=== PATIENT | male | born 1935 | race Hispanic/Latino ===

== ENCOUNTER 2024-10-06 22:03 | Inpatient (IN) | payer SELFPAY ==
[~2024-10-06] VITALS: Ht 167.6 cm; Wt 59.0 kg
[2024-10-06 22:55] LABS: BASOPHILS # (AUTO) 0.02 K/uL (0.00-0.20); BASOPHILS % (AUTO) 0.3 % (0.0-5.0); IMMATURE GRANULOCYTE ABSOLUTE 0.02 K/uL (0-1); LYMPHOCYTES % (AUTO) 26.3 % (21.0-51.0); MEAN CORPUSCULAR HEMOGLOBIN 34.4 pg (27.0-33.0); MEAN CORPUSCULAR HGB CONC 33.8 g/dL (32.0-36.0); MEAN CORPUSCULAR VOLUME 101.9 fL (79-99); MONOCYTES # (AUTO) 0.7 K/uL (0.1-1.0); MONOCYTES % (AUTO) 8.6 % (3.0-13.0); NEUTROPHILS # (AUTO) 4.6 K/uL (1.8-7.7); NEUTROPHILS % (AUTO) 60.5 % (40.0-77.0); PLATELET COUNT (AUTO) 326 K/uL (130-400); RED BLOOD CELL COUNT(AUTO) 3.14 MIL/uL (4.50-6.20); RED CELL DISTRIBUTION WIDTH 12.6 % (11.0-15.5); WHITE BLOOD COUNT (AUTO) 7.5 K/uL (4.8-10.8)
[2024-10-06 23:05] LABS: CREATININE 1.6 mg/dL (0.5-1.3); POTASSIUM 4.5 mmol/L (3.5-5.1)
[2024-10-06 23:08] LABS: INR 0.96 (0.85-1.15); PROTHROMBIN TIME 10.2 SEC (9.6-11.6)
[2024-10-06 23:09] LABS: PARTIAL THROMBOPLASTIN TIME 28.8 SEC (26.3-35.5)
--- NOTE | 2024-10-06 23:53 | HMCIMG ---
CT PELVIS W/O CONTRAST HISTORY: Left hip pain COMPARISON: None TECHNIQUE: Multiple sequential axial images of the pelvis were obtained from the iliac crests through symphysis pubis. Patient was not given contrast through intravenous route. Oral contrast was not given. Three-dimensional reconstruction images were obtained. FINDINGS: There are normal sized pelvic and inguinal lymph nodes. Fecal material seen throughout the colon. Diverticula are seen within the colon consistent with diverticulosis. No ascites is seen. Atherosclerotic changes are present. No acute displaced fracture or dislocation is seen. Pelvic sidewalls are symmetric bilaterally. Bladder is well distended without wall thickening. IMPRESSION: 1. No acute displaced fracture is seen. Scoliosis. Fecal material in the colon . No acute finding. CT was performed with one or more following dose reduction techniques: automated exposure control, adjustment of the mA and kv according to patient's size, or use of a iterative reconstruction technique.
--- NOTE | 2024-10-07 00:20 | NUR ---
ASSUMED PT CARE AT THIS TIME
--- NOTE | 2024-10-07 00:54 | ERN ---
General Chief Complaint: Hip Pain/Injury Stated Complaint: FALL Time Seen by MD: 22:15 Time Seen by Midlevel: 22:15 Source: patient History of Present Illness Initial Comments Patient is an 89-year-old male presenting to the emergency department for evaluation of left hip pain. Patient states he fell around September 13, 2024. He states he was in the shower and accidentally slipped and landed on his left hip. Denies any head injury or loss of consciousness. For the last couple of days the patient has been having an increase in pain and is no longer able to walk without assistance. Past Medical History Past Medical History: Hypertension Past Surgical History: None ROS Dictation CONSTITUTIONAL: Negative except for HPI HEAD/FACE: Negative except for HPI EENT: Negative except for HPI RESPIRATORY: Negative except for HPI GASTROINTESTINAL/ABDOMINAL: Negative except for HPI GENITOURINARY: Negative except for HPI MUSCULOSKELETAL: Negative except for HPI INTEGUMENTARY: Negative except for HPI NEUROLOGICAL/PSYCH: Negative except for HPI HEMATOLOGIC/LYMPHATIC: Negative except for HPI All Systems Negative, Except as noted above. 13 point review of systems assessed and all negative except for above. Physical Exam Physical Exam Dictation Vital Signs reviewed General Appearance: Alert, oriented x 3, no acute distress, frail appearing Head and Face: non-traumatic. Eyes: PERRL, pink conjunctivas, eyelid no trauma, anterior chamber with arcus senilis. Ears: Pinnas intact and no signs of trauma or erythema ear canals clear and no discharge TM no erythema Nose: No discharge, no bleeding. Oropharynx: Mouth normal, tongue pink, pharynx clear,no erythema, tonsils no exudates, no abscesses noted, mucous membrane moist Neck: Supple, non-tender, no thyromegaly, no masses, no JVD, no bruits Breast:Deferred Chest:No tenderness, no crepitus, no paradoxical movement, no retractions Lungs:Clear, well-ventilated, symmetric, no rales, no wheezing, no rhonchi, no stridor, good breath sounds bilaterally Heart: Regular rate, regular rhythm, no murmur, no gallops Vascular: no peripheral edema, Abdomen: Soft, positive bowel sounds, nondistended, no guarding, nontender, no rebound, no masses no hepatomegaly, no splenomegaly, no Sanches's sign, no hernias. Rectal: Deferred Genital: Deferred Neurological: Normal speech, motor function intact, sensory function intact Musculoskeletal: Neck nontender, full range of motion, back nontender, full range of motion, Extremities: Left hip tenderness Skin: Color pink, dry, no turgor, no rash, no lacerations, no abrasions, no contusions. Lymphatic: Deferred Results Laboratory and Microbiology Lab and Micro Result Laboratory Tests Test 10/06/24 22:47 White Blood Count 7.5 K/uL (4.8-10.8) Red Blood Count 3.14 MIL/uL (4.50-6.20) L Hemoglobin 10.8 g/dL (14.0-18.0) L Hematocrit 32.0 % (42-54) L Mean Corpuscular Volume 101.9 fL (79-99) H Mean Corpuscular Hemoglobin 34.4 pg (27.0-33.0) H Mean Corpuscular Hemoglobin Concent 33.8 g/dL (32.0-36.0) Red Cell Distribution Width 12.6 % (11.0-15.5) Platelet Count 326 K/uL (130-400) Mean Platelet Volume 8.5 fL (7.5-10.5) Immature Granulocyte % (Auto) 0.3 % (0-1) Neutrophils (%) (Auto) 60.5 % (40.0-77.0) Lymphocytes (%) (Auto) 26.3 % (21.0-51.0) Monocytes (%) (Auto) 8.6 % (3.0-13.0) Eosinophils (%) (Auto) 4.0 % (0.0-8.0) Basophils (%) (Auto) 0.3 % (0.0-5.0) Neutrophils # (Auto) 4.6 K/uL (1.8-7.7) Lymphocytes # (Auto) 2.0 K/uL (1.0-4.8) Monocytes # (Auto) 0.7 K/uL (0.1-1.0) Eosinophils # (Auto) 0.30 K/uL (0.00-0.70) Basophils # (Auto) 0.02 K/uL (0.00-0.20) Absolute Immature Granulocyte (auto 0.02 K/uL (0-1) Nucleated Red Blood Cells 0.0 % (0.0-0.19) Prothrombin Time 10.2 SEC (9.6-11.6) Prothromb Time International Ratio 0.96 (0.85-1.15) Activated Partial Thromboplast Time 28.8 SEC (26.3-35.5) Sodium Level 132 mmol/L (136-145) L Potassium Level 4.5 mmol/L (3.5-5.1) Chloride Level 97 mmol/L (101-111) L Carbon Dioxide Level 30 mmol/L (21-32) Blood Urea Nitrogen 23 mg/dL (7-18) H Creatinine 1.6 mg/dL (0.5-1.3) H Glomerular Filtration Rate Calc 41 mL/min (>90) Random Glucose 86 mg/dL (70-105) Total Calcium 8.8 mg/dL (8.5-10.1) Labs Reviewed?: Yes MDM MDM: 89-year-old male presenting following a fall. On exam patient has left hip tenderness and is unable to walk without assistance. An x-ray of the left hip was obtained which shows an abnormality over the left femoral neck. A CT scan of the pelvis is read by the radiologist as no acute fracture however the 3D reconstruction shows an obvious avulsion fracture. The patient will be admitted for further observation and management. Case was discussed with the hospitalist on-call who agrees to admit the patient. Differential diagnosis: Hip fracture, contusion, dislocation Rationale: Tests considered and ordered secondary to shared decision making include: Previous outside records reviewed: Old ER visits. Risk of complication and/or morbidity or mortality of patient management: None Medications-Per medication reconciliation Need for hospitalization: Patient does meet criteria for hospitalization. Need for emergency major/minor surgery: No There are no social concerns with this patient. Prescription drug management Prescriptions will include symptomatic care Patient's prior external medical records from other ER visits were reviewed by me as indicated. Prior testing and results from previous visits were reviewed. Prior tests were taken into account with medical decision making and resource utilization, independent historian/historians were used to obtain complete medical history. I independently interpreted the test that were performed, results were reviewed by me and considered findings on radiology if ordered. Medical management and examination interpretation discussions were had by me with other qualified healthcare professionals as indicated for the patient's care. ED Course Orders Procedure Category Date Status Time Cbc With Differential LAB 10/06/24 Complete 22:15 Basic Metabolic Panel LAB 10/06/24 Complete 22:15 Pt And Ptt LAB 10/06/24 Complete 22:15 Hip Unilat 2-3vw Left RAD 10/06/24 Taken 22:15 Ct Pelvis W/O Contrast CT 10/06/24 Resulted 22:59 Vital Signs Date Time Temp Pulse Resp B/P (MAP) Pulse Ox O2 Delivery O2 Flow Rate FiO2 10/06/24 22:08 98.4 63 18 176/62 97 [facility] [address] [place] [id number] IMAGING REPORT Signed PATIENT: XIMENA ROLDAN MR#: [id number] : 1935 SEX: M AGE: 89 LOCATION: [facility] ORDER 99 STATUS: REG ER REPORT#: [id number] SERVICE 58 REASON: persistent left hip pain r/o fracture ORDERING PHYSICIAN: ALLAN DOAN PROCEDURE: PELVIS WO - CT PELVIS W/O CONTRAST CT PELVIS W/O CONTRAST HISTORY: Left hip pain COMPARISON: None TECHNIQUE: Multiple sequential axial images of the pelvis were obtained from the iliac crests through symphysis pubis. Patient was not given contrast through intravenous route. Oral contrast was not given. Three-dimensional reconstruction images were obtained. FINDINGS: There are normal sized pelvic and inguinal lymph nodes. Fecal material seen throughout the colon. Diverticula are seen within the colon consistent with diverticulosis. No ascites is seen. Atherosclerotic changes are present. No acute displaced fracture or dislocation is seen. Pelvic sidewalls are symmetric bilaterally. Bladder is well distended without wall thickening. IMPRESSION: 1. No acute displaced fracture is seen. Scoliosis. Fecal material in the colon . No acute finding. CT was performed with one or more following dose reduction techniques: automated exposure control, adjustment of the mA and kv according to patient's size, or use of a iterative reconstruction technique. DICTATED BY: HELEN READ MD DATE: 10/06/242345 ELECTRONICALLY SIGNED BY: HELEN READ MD DATE: 10/06/24 4366 DX & DISP Disposition: Inpatient Decision to Admit Date: Oct 07, 2024 Decision to Admit Time: 00:53 Departure Impression: Primary Impression: Closed left hip fracture Condition: Stable Referrals: SELF,REFERRAL (PCP) I have reviewed the case, and I agree with, Diagnosis and Plan I performed the substantive portion of the visit. I have reviewed and personally made and approve the management plan that is documented in the note by myself or the LOLA. I acknowledge for responsibility for the patient's management plan. ALLAN DOAN Oct 07, 2024 00:54
[2024-10-07] MEDS ORDERED: ondanSETRON 4MG INJ IV PRN (02:00)
[2024-10-07] MEDS ORDERED: hydrALAZine 20MG/ML VIAL IV PRN ×2 (02:00→13:30)
--- NOTE | 2024-10-07 02:01 | HP ---
[facility] HISTORY AND PHYSICAL Date of Service: Oct 07, 2024 Time of Service: 01:31 HISTORY OF PRESENT ILLNESS: This is an 89-year-old male, Chinese-speaking with past medical history of hypertension presented to the ED for complaints of left hip pain.Apparently patient fell on August at home while in the shower.On my interview with the primary nurse and patient stated that patient fell a week ago while in the shower and patient fell 2 x on that same day while in the shower.Patient states he got dizzy and slid off the floor and landed on his left hip.Patient denies passing out,hitting his head ,headache and seizure.Patient d id not seek medical attention however for the past 2 days patient started experiencing an increasing pain intensity on his left hip and started having difficulty walking without assistance so he decided to come to the Ed for evaluation.Patient denies taking blood thinner or any antiplatelet medication. Seen and examined patient in the ER awake,alert and coherent,following commands. Patient denies fever,chills,cough,chest pain,palpitation and shortness of breath. Latest vital signs temperature 98.4 heart rate 63 blood pressure 176/62 saturation 97% on room air. Labs: Hemoglobin 10.8, hematocrit 32 platelet count 326. Sodium 132, chloride 97, BUN 23, creatinine 1.6 GFR 41. Left hip x-ray result is still pending at this time. CT pelvis without contrast result revealed there is avulsion fracture displacement involving the greater trochanter of the left proximal femur. Adjacent soft tissue swelling is seen. The scoliosis. Fecal material in the colon. We will admit patient for further medical management. REVIEW OF SYSTEMS CONSTITUTIONAL: Denies fevers, chills, or night sweats. No unintentional weight loss reported. NEUROLOGICAL: Denies headache, amaurosis fugax, motor weakness, sensory def icit, vertigo/spinning sensation, gait abnormalities, or tremors. ENT: No hearing loss, otalgia, otorrhea, rhinitis, rhinorrhea, hoarseness, or sore throat. CARDIOVASCULAR: Denies any exertional angina, dyspnea on exertion, orthopnea, paroxysmal nocturnal dyspnea, palpitations, life-threatening arrhythmias, claudication. PULMONARY: Denies any shortness of breath, cough, phlegm/sputum, hemoptysis, pleuritic chest pain. SLEEP: Denies morning headaches, daytime somnolence or napping. Denies difficulty falling asleep, staying asleep, waking from sleep. Denies knowledge of snoring. GASTROINTESTINAL: Denies any type of dysphagia to either liquids or solids. Denies nausea, vomiting, pyrosis, early satiety, abdominal pain, diarrhea, constipation, or changes in stool consistency or caliber. Denies coffee-ground emesis, hematemesis, hematochezia, or melanotic stools. GENITOURINARY: Denies frequency, urgency, nocturia, hematuria or incontinence (Storage/Irritative symptoms.) Low urinary stream, straining to void, urinary intermittency or hesitancy, splitting of the voiding stream, terminal dribbling. ENDOCRINOLOGIC: Denies polyuria, polydipsia, polyphagia or heat/cold intolerances. HEMATOLOGIC: Denies thrombophilia/previous clots, or coagulopathy/bleeding disorders. ONCOLOGIC: Denies personal history of malignancy. DERMATOLOGIC: Denies rashes or pruritus. PSYCHIATRIC: Denies any suicidal or homicidal ideation. Denies hallucinations. PAST MEDICAL HISTORY: [ Hypertension ] PAST SURGICAL HISTORY: [ Cholecystectomy ] PAST SOCIAL HISTORY: [Patient lives with who and a. Patient denies alcohol tobacco and recreational drug use ] FAMILY HISTORY: [ Noncontributory] PHYSICAL EXAM GENERAL APPEARANCE: The patient is awake, alert, and oriented, in no acute cardiopulmonary distress. NEUROLOGICAL: Cranial nerves II-XII grossly intact. Motor is 5/5 in bilateral upper and lower extremities proximal to distal. No sensory deficits. HEENT: Face is symmetric. Pupils are equal and reactive. Extraocular movements are intact. NECK: Supple. No JVD. No thyromegaly. No submental, submandibular, pre- /postauricular, occipital or supraclavicular lymphadenopathy. CHEST: Normal chest expansion. No Telemetry. LUNGS: Absence of any rales, rhonchi or any wheezing. CARDIOVASCULAR: Regular. S1 and S2 normal. No appreciable rubs, murmurs or gallops. ABDOMEN: Soft, nontender, and nondistended. There is no rebound, voluntary guarding, or rigidity. : Deferred. No Antonio. EXTREMITIES: Non-edematous and not cyanotic. No clubbing. Good capillary refill. SKIN: Bruising to left outer lateral thigh Vital Sign (Last 24 Hours) 10/06/24 22:08 Temp 98.4 Pulse 63 Resp 18 B/P (MAP) 176/62 Pulse Ox 97 LABS: Laboratory: Test 10/06/24 22:47 Range/Units White Blood Count 7.5 4.8-10.8 K/uL Red Blood Count 3.14 L 4.50-6.20 MIL/uL Hemoglobin 10.8 L 14.0-18.0 g/dL Hematocrit 32.0 L 42-54 % Mean Corpuscular Volume 101.9 H 79-99 fL Mean Corpuscular Hemoglobin 34.4 H 27.0-33.0 pg Mean Corpuscular Hemoglobin Concent 33.8 32.0-36.0 g/dL Red Cell Distribution Width 12.6 11.0-15.5 % Platelet Count 326 130-400 K/uL Mean Platelet Volume 8.5 7.5-10.5 fL Immature Granulocyte % (Auto) 0.3 0-1 % Neutrophils (%) (Auto) 60.5 40.0-77.0 % Lymphocytes (%) (Auto) 26.3 21.0-51.0 % Monocytes (%) (Auto) 8.6 3.0-13.0 % Eosinophils (%) (Auto) 4.0 0.0-8.0 % Basophils (%) (Auto) 0.3 0.0-5.0 % Neutrophils # (Auto) 4.6 1.8-7.7 K/uL Lymphocytes # (Auto) 2.0 1.0-4.8 K/uL Monocytes # (Auto) 0.7 0.1-1.0 K/uL Eosinophils # (Auto) 0.30 0.00-0.70 K/uL Basophils # (Auto) 0.02 0.00-0.20 K/uL Absolute Immature Granulocyte (auto 0.02 0-1 K/uL Nucleated Red Blood Cells 0.0 0.0-0.19 % Prothrombin Time 10.2 9.6-11.6 SEC Prothromb Time International Ratio 0.96 0.85-1.15 Activated Partial Thromboplast Time 28.8 26.3-35.5 SEC Sodium Level 132 L 136-145 mmol/L Potassium Level 4.5 3.5-5.1 mmol/L Chloride Level 97 L 101-111 mmol/L Carbon Dioxide Level 30 21-32 mmol/L Blood Urea Nitrogen 23 H 7-18 mg/dL Creatinine 1.6 H 0.5-1.3 mg/dL Glomerular Filtration Rate Calc 41 >90 mL/min Random Glucose 86 70-105 mg/dL Total Calcium 8.8 8.5-10.1 mg/dL DIAGNOSTICS / RADIOLOGY: [ ] ASSESSMENT: Closed left hip fracture POA S/P Fall injury at home POA Acute kidney injury POA Uncontrolled hypertension POA Acute anemia POA Scoliosis per CT POA PLAN: We will admit patient in medical surgical We will start on heart healthy diet We will start NS @ 75 ml / hr x2 bags and re evaluate We will start on Famotidine 20 mg IV bid for GI prophylaxis We will replace electrolytes as needed per protocol We will add prn medication for fever,pain,nausea and pain We will reconcile home meds once medlist available We will request labs in am We will request fecal occult blood We will seek orthopedic surgeon consultation Further orders to follow depending on above results Case discussed with attending physician and came up with above treatment and plan of care. ADVANCED CARE PLANNING 1. Which of the following were discussed? Hospice Care - No Therapeutic options - Yes Advance Directives - No Other discussions - 2. Discussed with who? Patient and Calli Grewal 3. Voluntary nature of this service was explained to the patient? Yes 4. Amount of time spent - 20 5. Reviewed by Physician? (if this service was performed by NPP) Yes Patient seen and examined by me. Agree with note by CURRICULUM COUNSELOR SEE ADDITIONAL ORDERS PER CHART DISCUSSED WITH NURSING STAFF ANAI STONE Oct 07, 2024 02:01
[2024-10-07] MEDS: acetaMINOPHEN 325 MG TAB PO PRN ×2 (02:29→10:09)
[2024-10-07] MEDS: 0.9%NACL 1000ML 1,000 ML IV SCH (02:29)
[2024-10-07] MEDS ORDERED: LACTULOSE 20 GM/30 ML UDCUP PO PRN (02:30)
[2024-10-07 04:55] LABS: APPEARANCE,URINE CLEAR (CLEAR); BILIRUBIN,URINE NEGATIVE (NEGATIVE); COLOR,URINE COLORLESS (YELLOW); GLUCOSE, URINE (UA) NEGATIVE (NEGATIVE); KETONES,URINE NEGATIVE (NEGATIVE); LEUKOCYTE ESTERASE ,URINE NEGATIVE Leu/uL (NEGATIVE); NITRATE,URINE NEGATIVE (NEGATIVE); OCCULT BLOOD,URINE NEGATIVE (NEGATIVE); PROTEIN,URINE NEGATIVE (NEGATIVE); UROBILINOGEN,URINE 0.2 mg/dL (0.2-1.0)
[2024-10-07 04:57] LABS: ADD UA MICROSCOPIC NO
[2024-10-07 07:43] LABS: BASOPHILS # (AUTO) 0.03 K/uL (0.00-0.20); BASOPHILS % (AUTO) 0.5 % (0.0-5.0); EOSINOPHILS # (AUTO) 0.36 K/uL (0.00-0.70); EOSINOPHILS % (AUTO) 6.6 % (0.0-8.0); HEMATOCRIT 33.3 % (42-54); IMMATURE GRANULOCYTE ABSOLUTE 0.01 K/uL (0-1); LYMPHOCYTES # (AUTO) 1.4 K/uL (1.0-4.8); LYMPHOCYTES % (AUTO) 25.2 % (21.0-51.0); MEAN CORPUSCULAR HGB CONC 33.3 g/dL (32.0-36.0); MEAN CORPUSCULAR VOLUME 102.1 fL (79-99); MONOCYTES # (AUTO) 0.5 K/uL (0.1-1.0); MONOCYTES % (AUTO) 8.8 % (3.0-13.0); NEUTROPHILS # (AUTO) 3.2 K/uL (1.8-7.7); NEUTROPHILS % (AUTO) 58.7 % (40.0-77.0); PLATELET COUNT (AUTO) 263 K/uL (130-400); RED BLOOD CELL COUNT(AUTO) 3.26 MIL/uL (4.50-6.20); RED CELL DISTRIBUTION WIDTH 12.5 % (11.0-15.5); WHITE BLOOD COUNT (AUTO) 5.5 K/uL (4.8-10.8)
[2024-10-07 07:53] LABS: INR 0.98 (0.85-1.15); PROTHROMBIN TIME 10.4 SEC (9.6-11.6)
[2024-10-07 07:54] LABS: PARTIAL THROMBOPLASTIN TIME 30.3 SEC (26.3-35.5)
[2024-10-07 08:01] LABS: ALBUMIN 3.3 g/dL (3.5-5.0); BILIRUBIN,TOTAL 0.5 mg/dL (0.2-1.0); CREATININE 1.3 mg/dL (0.5-1.3); MAGNESIUM 2.2 mg/dL (1.80-2.40); POTASSIUM 4.3 mmol/L (3.5-5.1); TOTAL PROTEIN, SERUM 6.9 g/dL (6.0-8.3)
[2024-10-07 08:05] VITALS: BP 177/74; PULSE 69; RESP 16; TEMP 98.3
[2024-10-07 09:00] VITALS: O2SAT 97
--- NOTE | 2024-10-07 09:12 | HMCIMG ---
Exam Type: HIP UNILAT 2-3VW LEFT Clinical Information: fall Comparison: None Findings and impression: There is osteopenia. There is a fracture of the greater trochanter base. No extension into the intertrochanteric region is seen and there are no other abnormalities.
[2024-10-07] MEDS: FAMOTIDINE 20MG VIAL IV SCH (09:40)
[2024-10-07 11:29] VITALS: BP 152/74; PULSE 65; RESP 17; TEMP 98
[2024-10-07] MEDS: amLODIPine 5 MG TAB PO SCH (15:43)
[2024-10-07 16:00] VITALS: BP 159/66; PULSE 66; RESP 17; TEMP 97.8
--- NOTE | 2024-10-07 16:32 | NUR ---
DCP -- Home Patient hard of hearing and speaks Nepalese. Patient had Preet Grewal, Son, be the historian. Preet Grewal, Son states patient lives with Savannah Arreguin, Daughter [phone], Calli Choi, Spouse and two sons in a house with a walk in shower. [facility] patient is retired, remains independent and does not drive. States able to complete ADL's with little help and observation. [facility] patient has a cane; denies other medical devices. Denies home health services, home care provider or dialysis. PCP - None (sees medical doctor in [place]) Pharmacy - [facility]. Upon discharge, Savannah Arreguin, Daughter [phone] and family will assist with care, as needed. Referred to Financial Counseling, [facility] and provided Community Resources List. Notifcesar Madden. Addendum: 10/07/24 at 1640 by MARVIN MARTÍNEZ RN CM Amended: Links added.
--- NOTE | 2024-10-07 17:15 | CONS ---
CONSULTATION NOTE Date of Service: Oct 07, 2024 Reason for Consultation: Left greater trochanteric fracture Requesting Physician: Unknown HISTORY OF PRESENT ILLNESS: 89-year-old male who reports falling 3-4 weeks ago with the onset of left hip pain. Family reports that the over the last few days his pain has been significantly increasing with significant pain yesterday causing them to present to the emergency room. Patient's daughter reports that he has been ambulating with a cane some during the last three or four weeks. REVIEW OF SYSTEMS CONSTITUTIONAL: Denies fever, chills, or fatigue. HEAD/FACE: No signs of trauma. EENT: Denies eye pain, blurred vision, double vision, or light sensitivity. RESPIRATORY: Denies shortness of breath, cough, wheezing CARDIOVASCULAR: Denies chest pain, palpitation, syncope GASTROINTESTINAL/ABDOMINAL: Denies abdominal pain, constipation, diarrhea, nausea or vomiting GENITOURINARY: Denies dysuria or hematuria. MUSCULOSKELETAL: Reports joint pain, tenderness, and trauma. INTEGUMENTARY: Denies rash or itchiness NEUROLOGICAL/PSYCH: Denies anxiety, depression, heat or cold intolerance. PAST MEDICAL HISTORY: HTN PAST SURGICAL HISTORY: cholecystectomy PAST SOCIAL HISTORY: Denies smoking, occasional alcohol use, lives with multigenerational family members, walks with a cane FAMILY HISTORY: NC Coded Allergies: No Known Drug Allergies (Unverified Allergy, Unknown, 10/07/24) PHYSICAL EXAM EYES: Anicteric. HENT: moist Oral mucosa NECK: Supple LUNGS: Nonlabored breathing CARDIOVASCULAR: Regular rate 2+ left dorsalis pedis ABDOMEN: Nondistended CENTRAL NERVOUS SYSTEM: Awake, alert, oriented x 3. No focal deficits. SKIN: Ecchymosis that is old over the lateral aspect of the left thigh LYMPHATICS: No peripheral lymphadenopathy MUSCULOSKELETAL: Left lower extremity with tenderness in the greater trochanteric region. Patient is able to perform knee flexion and extension, ankle plantar flexion and dorsiflexion. Palpable pulses distally. Neurovascularly intact. Ecchymosis in the lateral thigh. Small lesion that appears more psoriatic in the lateral thigh as well. EXTREMITIES: No cyanosis or clubbing BACK: Deferred GENITOURINARY: Deferred Vital Sign (Last 24 Hours) 10/07/24 10/07/24 10/07/24 07:40 11:29 16:00 Temp 97.9 Pulse 66 Resp 17 B/P (MAP) 159/66 Pulse Ox 98 O2 Delivery Room Air O2 Flow Rate 0 FiO2 21 LABS: Laboratory: Test 10/07/24 07:28 10/07/24 04:40 Range/Units White Blood Count 5.5 # 4.8-10.8 K/uL Red Blood Count 3.26 L 4.50-6.20 MIL/uL Hemoglobin 11.1 L 14.0-18.0 g/dL Hematocrit 33.3 L 42-54 % Mean Corpuscular Volume 102.1 H 79-99 fL Mean Corpuscular Hemoglobin 34.0 H 27.0-33.0 pg Mean Corpuscular Hemoglobin Concent 33.3 32.0-36.0 g/dL Red Cell Distribution Width 12.5 11.0-15.5 % Platelet Count 263 130-400 K/uL Mean Platelet Volume 8.2 7.5-10.5 fL Immature Granulocyte % (Auto) 0.2 0-1 % Neutrophils (%) (Auto) 58.7 40.0-77.0 % Lymphocytes (%) (Auto) 25.2 21.0-51.0 % Monocytes (%) (Auto) 8.8 3.0-13.0 % Eosinophils (%) (Auto) 6.6 0.0-8.0 % Basophils (%) (Auto) 0.5 0.0-5.0 % Neutrophils # (Auto) 3.2 1.8-7.7 K/uL Lymphocytes # (Auto) 1.4 1.0-4.8 K/uL Monocytes # (Auto) 0.5 0.1-1.0 K/uL Eosinophils # (Auto) 0.36 0.00-0.70 K/uL Basophils # (Auto) 0.03 0.00-0.20 K/uL Absolute Immature Granulocyte (auto 0.01 0-1 K/uL Nucleated Red Blood Cells 0.0 0.0-0.19 % Prothrombin Time 10.4 9.6-11.6 SEC Prothromb Time International Ratio 0.98 0.85-1.15 Activated Partial Thromboplast Time 30.3 26.3-35.5 SEC Sodium Level 136 136-145 mmol/L Potassium Level 4.3 3.5-5.1 mmol/L Chloride Level 102 101-111 mmol/L Carbon Dioxide Level 29 21-32 mmol/L Blood Urea Nitrogen 18 7-18 mg/dL Creatinine 1.3 0.5-1.3 mg/dL Glomerular Filtration Rate Calc 53 >90 mL/min Random Glucose 88 70-105 mg/dL Total Calcium 8.6 8.5-10.1 mg/dL Magnesium Level 2.20 1.80-2.40 mg/dL Iron Level 56 L 65-175 mcg/dL Total Iron Binding Capacity 280 250-450 mcg/dL Percent Iron Saturation 20.0 L 30-44 % Total Bilirubin 0.5 0.2-1.0 mg/dL Aspartate Amino Transf (AST/SGOT) 24 10-37 U/L Alanine Aminotransferase (ALT/SGPT) 22 12-78 U/L Alkaline Phosphatase 122 50-136 U/L Total Protein 6.9 6.0-8.3 g/dL Albumin 3.3 L 3.5-5.0 g/dL Urine Color COLORLESS YELLOW Urine Appearance CLEAR CLEAR Urine pH 7.0 5.0-8.0 Urine Specific [place] 1.006 1.001-1.031 Urine Protein NEGATIVE NEGATIVE mg/dL Urine Glucose (UA) NEGATIVE NEGATIVE mg/dL Urine Ketones NEGATIVE NEGATIVE mg/dL Urine Occult Blood NEGATIVE NEGATIVE Urine Nitrate NEGATIVE NEGATIVE Urine Bilirubin NEGATIVE NEGATIVE mg/dL Urine Urobilinogen 0.2 0.2-1.0 mg/dL Urine Leukocyte Esterase NEGATIVE NEGATIVE Jaylon/uL DIAGNOSTICS / RADIOLOGY: AP pelvis and CT scan of pelvis both with displaced greater trochanteric fracture of the left hip. ASSESSMENT: 89-year-old male through a status post left greater trochanteric fracture. PLAN: Patient can be foot flat weight-bearing with a walker with physical therapy. I discussed with the patient and family that this will likely take three months to heal given his advanced age. We discussed that it will we painful while this is healing. We discussed that the fracture appears stable and so we will allow him to partial weightbear on this leg. Follow up in [facility] in three weeks. NIKOLE ROSSI MD Oct 07, 2024 17:15
[2024-10-07 19:00] VITALS: BP_SYST 114; BP_SYST 136; BP_DIAS 39; BP_DIAS 67; PULSE 66; RESP 18; TEMP 97.9
[2024-10-07 20:10] VITALS: O2SAT 95
[2024-10-08 00:19] VITALS: BP 126/67; PULSE 63; RESP 18; TEMP 98.2
[2024-10-08 04:21] VITALS: BP 143/69; PULSE 68; RESP 18; TEMP 98
[2024-10-08 04:54] VITALS: BP 143/69; PULSE 68; RESP 18; TEMP 98
[2024-10-08 05:59] LABS: HEMATOCRIT 30.2 % (42-54); MEAN CORPUSCULAR HEMOGLOBIN 34.8 pg (27.0-33.0); MEAN CORPUSCULAR HGB CONC 34.4 g/dL (32.0-36.0); RED BLOOD CELL COUNT(AUTO) 2.99 MIL/uL (4.50-6.20); RED CELL DISTRIBUTION WIDTH 12.3 % (11.0-15.5); WHITE BLOOD COUNT (AUTO) 5.7 K/uL (4.8-10.8)
[2024-10-08 06:09] LABS: ALBUMIN 3.1 g/dL (3.5-5.0); BILIRUBIN,TOTAL 0.5 mg/dL (0.2-1.0); CREATININE 1.3 mg/dL (0.5-1.3); MAGNESIUM 2.2 mg/dL (1.80-2.40); POTASSIUM 4.3 mmol/L (3.5-5.1); TOTAL PROTEIN, SERUM 6.5 g/dL (6.0-8.3)
[2024-10-08 08:00] VITALS: BP_SYST 149; BP_SYST 154; BP_DIAS 67; BP_DIAS 77; PULSE 70; PULSE 72; RESP 18; TEMP 98.3; TEMP 98.4; O2SAT 97
[2024-10-08 12:00] VITALS: BP 149/67; PULSE 70; RESP 18; TEMP 98.3
[2024-10-08] MEDS ORDERED: AMLO5TAB4 PO (12:11)
--- NOTE | 2024-10-08 13:03 | NUR ---
CM NOTE/WALKER CM spoke to CM director regarding pending discharge and DME needs. Approved [facility] walker to be loaned to patient. CM spoke to patient and spouse at bedside regarding loaned walker. Verbalized understanding. Spouse/patient aware to return borrowed walker to [facility] ER once they have obtained DME from friend/family. CM updated primary nurse. Addendum: 10/08/24 at 1305 by MERYL PANG CM Amended: Links added.
--- NOTE | 2024-10-08 14:58 | DS ---
Discharge Summary Hospital Course Summary: This is an 89-year-old male, Martiniquais-speaking with past medical history of hypertension presented to the ED for complaints of left hip pain. Apparently patient fell on August at home while in the shower. Seen and examined patient in the ER awake,alert and coherent,following commands. In the emergency room vital signs temperature 98.4 heart rate 63 blood pressure 176/62 saturation 97% on room air. In the emergency room Labs: Hemoglobin 10.8, hematocrit 32 platelet count 326. Sodium 132, chloride 97, BUN 23, creatinine 1.6 GFR 41. Left hip x-ray result is still pending at this time. CT pelvis without contrast result revealed there is avulsion fracture displace ment involving the greater trochanter of the left proximal femur. Adjacent soft tissue swelling is seen. The scoliosis. Fecal material in the colon. Orthopedic consultation requested, recommendations followed, weight-bearing with a walker with the physical activity recommended. To follow up as an outpatient in three weeks. [employer] Heating Installer(s): Orthopedic Assessment/Plan: Final diagnosis Closed left hip fracture POA S/P Fall injury at home POA Acute kidney injury POA Uncontrolled hypertension POA Acute anemia POA Scoliosis per CT POA Discharge Instructions: Patient to follow up with the orthopedic physician Dr. Andrews in three weeks as an outpatient and to return to the hospital if condition changes. Patient to take Tylenol and ibuprofen as needed for pain control. Patient and family agreed and understood the information provided. Home Medications: Active Scripts Amlodipine Besylate (Norvasc 5Mg Tab) 5 Mg Tablet, 5 MG PO DAILY for 30 Days, #30 TAB 1 Refill Prov:REYNA MOTA MD 10/08/24 New Medications: Amlodipine Besylate (Norvasc 5Mg Tab) 5 Mg Tablet 5 MG PO DAILY for 30 Days, #30 TAB 1 Refill Time spent arranging discharge: 31-60 minutes REYNA MOTA MD Oct 08, 2024 14:58
--- NOTE | 2024-10-08 19:58 | NUR ---
DISCHARGE NOTE: late entry Patient ID and IV removed. Discharge instructions reviewed. Provided written copy. Medications reviewed and prescriptions sent to pharmacy of choice. Patient taken down in wheelchair accompanied by family. Belongings packed and taken with patient.
== END 2024-10-08 14:04 | disposition home or self-care (01) | DRG 536 ==
LOC: EDH 22:03 → EDHIP 22:04 → 3DH 10-07 08:05
PROVIDERS: ADMIT Internal Medicine; ATTEND Internal Medicine
DX: S72.112A Displaced fracture of greater trochanter of left femur, initial encounter for closed fracture (principal); N17.9 Acute kidney failure, unspecified; W01.0XXA Fall on same level from slipping, tripping and stumbling without subsequent striking against object, initial encounter; I10 Essential (primary) hypertension; D64.9 Anemia, unspecified; M41.9 Scoliosis, unspecified; Y93.89 Activity, other specified; Y92.89 Other specified places as the place of occurrence of the external cause; Y99.8 Other external cause status; Z79.899 Other long term (current) drug therapy
CPT/HCPCS: 36415; 72192; 73502; 80048; 80053; 81003; 83540; 83550; 83735; 85025; 85027; 85610; 85730; G0378; J3490; J7030